=== PATIENT | male | born 1990 | race African-American/Black ===

== ENCOUNTER 2020-06-15 16:46 | Emergency (ER) | payer OTHER ==
[~2020-06-15] VITALS: Ht 162.6 cm; Wt 65.9 kg
[2020-06-15 16:47] VITALS: BP 141/94
[2020-06-15] MEDS ORDERED: ARIP2 PO (16:53)
[2020-06-15] MEDS ORDERED: PERTUSS(ACELL),DIPH,TET VAC/PF 0.5 ML SYRINGE IM ONE (17:30)
[2020-06-15] MEDS ORDERED: AMOX TR/POT CLAV 875 MG/125 MG TABLET PO ONE (17:30)
== END 2020-06-15 18:13 | disposition home or self-care (01) ==
LOC: EMS 16:46
DX: S01.21XA Laceration without foreign body of nose, initial encounter (principal); F32.9 Major depressive disorder, single episode, unspecified; Z91.018 Allergy to other foods; Y04.1XXA Assault by human bite, initial encounter; Y93.89 Activity, other specified; Y92.89 Other specified places as the place of occurrence of the external cause; Y99.8 Other external cause status
CPT/HCPCS: 12011; 90471; 90715; 99283

== ENCOUNTER 2020-06-16 10:55 | Emergency (ER) | payer OTHER ==
[~2020-06-16] VITALS: Ht 165.1 cm; Wt 72.7 kg
[~2020-06-16 10:55] MED LIST: ARIP2 PO
[2020-06-16] MEDS ORDERED: KETOROLAC TROMETHAMINE 60 MG/2 ML VIAL IM ONE (12:45)
[2020-06-16 13:30] VITALS: BP 150/86
== END 2020-06-16 14:00 | disposition home or self-care (01) ==
LOC: EMS 10:59
DX: S62.001A Unspecified fracture of navicular [scaphoid] bone of right wrist, initial encounter for closed fracture (principal); F12.90 Cannabis use, unspecified, uncomplicated; Y04.0XXA Assault by unarmed brawl or fight, initial encounter; Y93.89 Activity, other specified; Y92.89 Other specified places as the place of occurrence of the external cause; Y99.8 Other external cause status
CPT/HCPCS: 29125; 73110; 73130; 96372; 99284; J1885

== ENCOUNTER 2021-10-09 14:32 | Inpatient (IN) | payer MEDICAID, OTHER ==
[~2021-10-09] VITALS: Ht 162.6 cm; Wt 53.5 kg
[~2021-10-09 14:32] MED LIST changes: -ARIP2 PO; +ARIP2TAB27 PO
[2021-10-09 16:40] LABS: BASOPHILS % (AUTO) 0.9 % (0.0-2.0); EOSINOPHILS % (AUTO) 1.9 % (1.0-6.0); HEMATOCRIT 39.4 % (41-53); HEMOGLOBIN 13.5 g/dL (13.5-17.5); LYMPHOCYTES % (AUTO) 47.9 % (22.0-44.0); MEAN CORPUSCULAR HEMOGLOBIN 31.2 pg (26.0-34.0); MEAN CORPUSCULAR HGB CONC 34.2 G/dL (31.0-37.0); MEAN CORPUSCULAR VOLUME 91 fL (80-100); MONOCYTES # (AUTO) 0.4 K/uL (0.1-1.0); MONOCYTES % (AUTO) 9.9 % (2.0-9.0); NEUTROPHILS # (AUTO) 1.7 K/uL (1.8-7.7); NEUTROPHILS % (AUTO) 39.4 % (40.0-70.0); PLATELET COUNT (AUTO) 236 K/uL (150-450); RED BLOOD CELL COUNT(AUTO) 4.33 MIL/uL (4.50-5.90); RED CELL DISTRIBUTION WIDTH 12.6 % (11.5-14.5)
[2021-10-09 16:45] LABS: ANION GAP 4 mmol/L (8-16); CALCIUM, TOTAL 8.8 mg/dL (8.8-10.5); CARBON DIOXIDE 30 mmol/L (22-29); CHLORIDE 104 mmol/L (98-107); CREATININE 1.11 mg/dL (0.60-1.30); GLUCOSE,RANDOM 131 mg/dL (70-110); POTASSIUM 3.7 mmol/L (3.5-5.1); SODIUM SERUM 138 mmol/L (136-145); UREA NITROGEN, BLOOD 9 mg/dL (7-18)
[2021-10-09 16:46] LABS: GLOMERULAR FILTR. RATE CALC > 60 mL/min (>60)
[2021-10-09 16:51] LABS: ALANINE AMINOTRANSFERASE 43 U/L (12-78); ALBUMIN 3.6 g/dL (3.4-5.0); ALKALINE PHOSPHATASE 93 U/L (46-116); ASPARTATE AMINOTRANSFERASE 47 U/L (15-37); TOTAL PROTEIN, SERUM 6.8 g/dL (6.4-8.2)
[2021-10-09] MEDS ORDERED: ZOLPIDEM TARTRATE 10 MG TABLET PO PRN (17:00)
[2021-10-09] MEDS ORDERED: OLANZapine 5 MG RAPDIS TABLET PO PRN (17:00)
[2021-10-09] MEDS ORDERED: LORazepam 2 MG TABLET PO PRN (17:00)
[2021-10-09] MEDS ORDERED: NICOTINE 14 MG/24 HOUR PATCH TD ONE (17:30)
[2021-10-09 17:33] LABS: COVID AG,FIA SOURCE NASAL SWAB
[2021-10-09 17:48] LABS: AMPHET/METH SCREEN,URINE NEGATIVE (NEGATIVE); BARBITURATE SCREEN, URINE NEGATIVE (NEGATIVE); BENZODIAZEPINES SCREEN,URINE NEGATIVE (NEGATIVE); CANNABINOID SCREEN,URINE POSITIVE (NEGATIVE); COCAINE SCREEN,URINE NEGATIVE (NEGATIVE); METHADONE SCREEN, URINE NEGATIVE (NEGATIVE); OPIATE SCREEN,URINE NEGATIVE (NEGATIVE)
[2021-10-09 17:52] LABS: APPEARANCE,URINE CLEAR (CLEAR); BILIRUBIN,URINE NEGATIVE (NEGATIVE); GLUCOSE, URINE (UA) NEGATIVE (NEGATIVE); KETONES,URINE NEGATIVE (NEGATIVE); LEUKOCYTE ESTERASE ,URINE NEGATIVE (NEGATIVE); NITRATE,URINE NEGATIVE (NEGATIVE); OCCULT BLOOD,URINE NEGATIVE (NEGATIVE); PROTEIN,URINE NEGATIVE (NEGATIVE); SPECIFIC GRAVITIY, URINE 1.002 (1.003-1.030); UROBILINOGEN,URINE <=1.0 mg/dL (<=1.0)
[2021-10-09 17:55] LABS: PHENCYCLIDINE SCREEN,URINE NEGATIVE (NEGATIVE)
[2021-10-09] MEDS ORDERED: TUBERCULIN, PURIFIED PROTEIN DERIVATIVE 5 TU/0.1 ML SYRINGE ID ONE (21:00)
[2021-10-09] MEDS ORDERED: GuaiFENesin/D-METHORPHAN [SUGAR-FREE] 200-20MG/10 ML SYRUP UDCUP PO PRN (21:00)
[2021-10-09] MEDS ORDERED: PROMETHAZINE HCL 25 MG TABLET PO PRN (21:00)
[2021-10-09] MEDS ORDERED: HydrOXYzine PAMOATE 50 MG CAPSULE PO PRN (21:00)
[2021-10-09] MEDS ORDERED: MAG HYDROX/AL HYDROX/SIMETH ES 30 ML SUSPENSION UDCUP PO PRN (21:00)
[2021-10-09] MEDS ORDERED: ACETAMINOPHEN 325 MG TABLET PO PRN (21:00)
[2021-10-09] MEDS ORDERED: LOPERAMIDE HCL 2 MG CAPSULE PO PRN (21:00)
[2021-10-09 22:24] VITALS: BP 139/66
[2021-10-09] MEDS: MELATONIN 5 MG TABLET PO SCH (23:02)
[2021-10-09] MEDS: OLANZapine 5 MG RAPDIS TABLET PO SCH (23:03)
[2021-10-10 07:21] LABS: CHOL/HDL RATIO 2.6 (4.2-7.3); FREE T4 (FREE THYROXINE) 1.12 ng/dL (0.76-1.46); THYROID STIMULATING HORMONE 0.72 uIU/mL (0.36-3.74)
[2021-10-10 08:09] LABS: HEMOGLOBIN A1C 4.8 % (3.8-5.6)
[2021-10-10 08:19] VITALS: BP 114/69
[2021-10-10] MEDS: FOLIC ACID 1 MG TABLET PO SCH (08:52)
[2021-10-10] MEDS: MULTIVITAMINS WITH MINERALS, THERAPEUTIC TABLET PO SCH (08:52)
[2021-10-10] MEDS: THIAMINE 100 MG TABLET PO SCH ×2 (08:52→17:04)
[2021-10-10] MEDS: NALTREXONE HCL 50 MG TABLET PO SCH (08:52)
[2021-10-10] MEDS: OMEGA-3/DHA/EPA/FISH OIL 1,000 MG CAPSULE PO SCH (08:53)
[2021-10-10] MEDS ORDERED: LORazepam 2 MG/ML VIAL IM ONE (14:45)
[2021-10-10] MEDS ORDERED: DiphenhydrAMINE HCL 50 MG/ML VIAL IM ONE (14:45)
[2021-10-10] MEDS ORDERED: HALOPERIDOL LACTATE 5 MG/ML VIAL IM ONE (14:45)
[2021-10-10] MEDS ORDERED: HALOPERIDOL LACTATE 5 MG/ML VIAL ONE (14:47)
[2021-10-10] MEDS ORDERED: LORazepam 2 MG/ML VIAL ONE (14:47)
[2021-10-10] MEDS ORDERED: DiphenhydrAMINE HCL 50 MG/ML VIAL ONE (14:47)
[2021-10-10 20:08] VITALS: BP 115/68
[2021-10-10] MEDS: MELATONIN 5 MG TABLET PO SCH (21:32)
[2021-10-10] MEDS: DIVALPROEX SODIUM 250 MG ER TABLET PO SCH (21:32)
[2021-10-10] MEDS: OLANZapine 5 MG RAPDIS TABLET PO SCH (21:32)
[2021-10-11 08:32] VITALS: BP 142/96
[2021-10-11] MEDS: THIAMINE 100 MG TABLET PO SCH ×2 (09:00→16:57)
[2021-10-11] MEDS: NALTREXONE HCL 50 MG TABLET PO SCH (09:00)
[2021-10-11] MEDS: DIVALPROEX SODIUM 250 MG ER TABLET PO SCH ×2 (09:00→12:24)
[2021-10-11] MEDS: OMEGA-3/DHA/EPA/FISH OIL 1,000 MG CAPSULE PO SCH (09:00)
[2021-10-11] MEDS: MULTIVITAMINS WITH MINERALS, THERAPEUTIC TABLET PO SCH (09:00)
[2021-10-11] MEDS: FOLIC ACID 1 MG TABLET PO SCH (09:00)
[2021-10-11 20:04] VITALS: BP 125/84
[2021-10-11] MEDS: MELATONIN 5 MG TABLET PO SCH (20:11)
[2021-10-11] MEDS ORDERED: OLANZapine 10 MG RAPDIS TABLET PO SCH (21:00)
[2021-10-12 05:08] VITALS: BP 132/82
[2021-10-12] MEDS: THIAMINE 100 MG TABLET PO SCH ×2 (08:06→16:04)
[2021-10-12] MEDS: FOLIC ACID 1 MG TABLET PO SCH (08:06)
[2021-10-12] MEDS: NALTREXONE HCL 50 MG TABLET PO SCH (08:06)
[2021-10-12] MEDS: OMEGA-3/DHA/EPA/FISH OIL 1,000 MG CAPSULE PO SCH (08:06)
[2021-10-12] MEDS: MULTIVITAMINS WITH MINERALS, THERAPEUTIC TABLET PO SCH (08:06)
[2021-10-12 08:14] VITALS: BP 110/63
[2021-10-12] MEDS ORDERED: PALIPERIDONE PALMITATE 234 MG/1.5 ML SYRINGE IM ONE (13:45)
[2021-10-12] MEDS ORDERED: MELA5TAB40 PO (16:08)
[2021-10-12] MEDS ORDERED: NALT50TA PO (16:08)
[2021-10-12] MEDS ORDERED: OMEG-108 PO (16:08)
[2021-10-12] MEDS ORDERED: PALI117D IM (16:08)
[2021-10-12 20:09] VITALS: BP 140/78
[2021-10-12] MEDS: MELATONIN 5 MG TABLET PO SCH (20:10)
[2021-10-13 06:05] VITALS: BP 139/88
[2021-10-13 08:01] VITALS: BP 136/71
[2021-10-13] MEDS: FOLIC ACID 1 MG TABLET PO SCH (08:17)
[2021-10-13] MEDS: NALTREXONE HCL 50 MG TABLET PO SCH (08:17)
[2021-10-13] MEDS: MULTIVITAMINS WITH MINERALS, THERAPEUTIC TABLET PO SCH (08:17)
[2021-10-13] MEDS: OMEGA-3/DHA/EPA/FISH OIL 1,000 MG CAPSULE PO SCH (08:17)
[2021-10-13] MEDS: THIAMINE 100 MG TABLET PO SCH (08:17)
[2021-11-09] MEDS ORDERED: PALIPERIDONE PALMITATE 117 MG/0.75 ML SYRINGE IM SCH (09:00)
== END 2021-10-13 13:15 | disposition home or self-care (01) | DRG 750 ==
LOC: EMS 14:32 → B2S 17:26 → B3A 10-10 16:15
PROVIDERS: ADMIT Psychiatry & Neurology Psychiatry; ATTEND Psychiatry & Neurology Psychiatry
DX: F20.9 Schizophrenia, unspecified (principal); Z20.822 Contact with and (suspected) exposure to COVID-19
CPT/HCPCS: 80053; 80061; 81003; 83036; 84439; 84443; 85025; 86592; 99285; G0480; J1200; J1630; J2060; Q9967

== ENCOUNTER 2022-02-08 12:51 | Inpatient (IN) | payer MEDICAID, OTHER ==
[~2022-02-08] VITALS: Ht 162.6 cm; Wt 64.9 kg
[~2022-02-08 12:51] MED LIST changes: -ARIP2TAB27 PO; +MELA5TAB40 PO; +NALT50TA PO; +OMEG-135 PO; +PALI117D IM
[2022-02-08 14:57] LABS: COVID AG,FIA SOURCE NASOPHARYNGEAL
[2022-02-08 14:59] LABS: BASOPHILS % (AUTO) 0.9 % (0.0-2.0); EOSINOPHILS % (AUTO) 0.4 % (1.0-6.0); HEMATOCRIT 42.1 % (41-53); HEMOGLOBIN 14.2 g/dL (13.5-17.5); LYMPHOCYTES # (AUTO) 2.1 K/uL (1.0-4.8); LYMPHOCYTES % (AUTO) 28.4 % (22.0-44.0); MEAN CORPUSCULAR HEMOGLOBIN 30.8 pg (26.0-34.0); MEAN CORPUSCULAR HGB CONC 33.8 G/dL (31.0-37.0); MEAN CORPUSCULAR VOLUME 91 fL (80-100); MONOCYTES # (AUTO) 0.5 K/uL (0.1-1.0); MONOCYTES % (AUTO) 6.8 % (2.0-9.0); NEUTROPHILS # (AUTO) 4.8 K/uL (1.8-7.7); NEUTROPHILS % (AUTO) 63.5 % (40.0-70.0); PLATELET COUNT (AUTO) 304 K/uL (150-450); RED BLOOD CELL COUNT(AUTO) 4.63 MIL/uL (4.50-5.90); RED CELL DISTRIBUTION WIDTH 12.5 % (11.5-14.5)
[2022-02-08] MEDS ORDERED: LORazepam 2 MG TABLET PO PRN (15:00)
[2022-02-08] MEDS ORDERED: HALOPERIDOL 5 MG TABLET PO PRN (15:00)
[2022-02-08] MEDS ORDERED: ZOLPIDEM TARTRATE 10 MG TABLET PO PRN (15:00)
[2022-02-08 15:11] LABS: ANION GAP 7 mmol/L (8-16); CALCIUM, TOTAL 9.5 mg/dL (8.8-10.5); CARBON DIOXIDE 28 mmol/L (22-29); CHLORIDE 104 mmol/L (98-107); CREATININE 1.09 mg/dL (0.60-1.30); GLOMERULAR FILTR. RATE CALC > 60 mL/min (>60); GLUCOSE,RANDOM 92 mg/dL (70-110); POTASSIUM 4.3 mmol/L (3.5-5.1); SODIUM SERUM 139 mmol/L (136-145); UREA NITROGEN, BLOOD 14 mg/dL (7-18)
[2022-02-08 15:17] LABS: ALANINE AMINOTRANSFERASE 37 U/L (12-78); ALBUMIN 4.1 g/dL (3.4-5.0); ALKALINE PHOSPHATASE 107 U/L (46-116); ASPARTATE AMINOTRANSFERASE 41 U/L (15-37); BILIRUBIN,TOTAL 1.4 mg/dL (0.1-1.0); TOTAL PROTEIN, SERUM 7.5 g/dL (6.4-8.2)
[2022-02-08 19:21] VITALS: BP 104/53
[2022-02-08 23:50] VITALS: BP 127/84
[2022-02-09 08:10] VITALS: BP 129/88
[2022-02-09] MEDS: DIVALPROEX SODIUM 500 MG DR TABLET PO SCH ×2 (12:00→20:18)
[2022-02-09] MEDS: RisperiDONE 2 MG TABLET PO SCH ×2 (12:00→20:18)
[2022-02-09] MEDS: OMEGA-3/DHA/EPA/FISH OIL 1,000 MG CAPSULE PO SCH (12:16)
[2022-02-09 20:22] VITALS: BP 104/67
[2022-02-10 01:43] VITALS: BP 130/79
[2022-02-10 08:09] VITALS: BP 124/72
[2022-02-10] MEDS: OMEGA-3/DHA/EPA/FISH OIL 1,000 MG CAPSULE PO SCH (08:32)
[2022-02-10] MEDS: DIVALPROEX SODIUM 500 MG DR TABLET PO SCH ×2 (08:32→20:49)
[2022-02-10] MEDS: RisperiDONE 2 MG TABLET PO SCH ×2 (08:32→20:49)
[2022-02-10 20:43] VITALS: BP 122/70
[2022-02-11] MEDS: OMEGA-3/DHA/EPA/FISH OIL 1,000 MG CAPSULE PO SCH (08:13)
[2022-02-11 08:14] VITALS: BP 122/76
[2022-02-11] MEDS: DIVALPROEX SODIUM 500 MG DR TABLET PO SCH ×2 (08:16→20:08)
[2022-02-11] MEDS: RisperiDONE 2 MG TABLET PO SCH ×2 (09:00→20:07)
[2022-02-11 22:07] VITALS: BP 129/74
[2022-02-12 08:08] VITALS: BP 129/83
[2022-02-12] MEDS: OMEGA-3/DHA/EPA/FISH OIL 1,000 MG CAPSULE PO SCH (08:11)
[2022-02-12] MEDS: RisperiDONE 2 MG TABLET PO SCH ×2 (08:15→20:28)
[2022-02-12] MEDS: DIVALPROEX SODIUM 500 MG DR TABLET PO SCH ×2 (08:16→20:28)
[2022-02-12] MEDS ORDERED: PALIPERIDONE PALMITATE 234 MG/1.5 ML SYRINGE IM ONE (16:00)
[2022-02-12 20:19] VITALS: BP 134/68
[2022-02-13 07:43] LABS: AMPHET/METH SCREEN,URINE NEGATIVE (NEGATIVE); BARBITURATE SCREEN, URINE NEGATIVE (NEGATIVE); BENZODIAZEPINES SCREEN,URINE NEGATIVE (NEGATIVE); CANNABINOID SCREEN,URINE NEGATIVE (NEGATIVE); COCAINE SCREEN,URINE NEGATIVE (NEGATIVE); METHADONE SCREEN, URINE NEGATIVE (NEGATIVE); OPIATE SCREEN,URINE NEGATIVE (NEGATIVE)
[2022-02-13 07:46] LABS: PHENCYCLIDINE SCREEN,URINE NEGATIVE (NEGATIVE)
[2022-02-13 08:18] VITALS: BP 155/83
[2022-02-13] MEDS: OMEGA-3/DHA/EPA/FISH OIL 1,000 MG CAPSULE PO SCH (08:39)
[2022-02-13] MEDS: DIVALPROEX SODIUM 500 MG DR TABLET PO SCH ×2 (08:40→21:00)
[2022-02-13] MEDS: RisperiDONE 2 MG TABLET PO SCH (08:40)
[2022-02-13 20:12] VITALS: BP 126/80
[2022-02-14] MEDS: OMEGA-3/DHA/EPA/FISH OIL 1,000 MG CAPSULE PO SCH (08:11)
[2022-02-14] MEDS: DIVALPROEX SODIUM 500 MG DR TABLET PO SCH ×2 (08:21→20:08)
[2022-02-14] MEDS: RisperiDONE 2 MG TABLET PO SCH ×2 (08:21→20:08)
[2022-02-14 08:23] VITALS: BP 140/75
[2022-02-14 08:51] LABS: GLUCOMETER DEV NAME(LOC) POC.BV
[2022-02-14 20:13] VITALS: BP 130/74
[2022-02-15 08:25] VITALS: BP 140/85
[2022-02-15] MEDS: OMEGA-3/DHA/EPA/FISH OIL 1,000 MG CAPSULE PO SCH (08:42)
[2022-02-15] MEDS: DIVALPROEX SODIUM 500 MG DR TABLET PO SCH ×2 (08:42→20:25)
[2022-02-15] MEDS: RisperiDONE 2 MG TABLET PO SCH ×2 (08:42→20:25)
[2022-02-15 20:30] VITALS: BP 136/83
[2022-02-16] MEDS: RisperiDONE 2 MG TABLET PO SCH ×3 (09:00→21:00)
[2022-02-16] MEDS ORDERED: PALIPERIDONE PALMITATE 156 MG/ML SYRINGE IM ONE (09:00)
[2022-02-16] MEDS: DIVALPROEX SODIUM 500 MG DR TABLET PO SCH ×3 (09:00→21:00)
[2022-02-16] MEDS: OMEGA-3/DHA/EPA/FISH OIL 1,000 MG CAPSULE PO SCH (09:03)
[2022-02-16 09:04] VITALS: BP 139/86
[2022-02-16 20:33] VITALS: BP 129/72
[2022-02-17] MEDS: OMEGA-3/DHA/EPA/FISH OIL 1,000 MG CAPSULE PO SCH (08:36)
[2022-02-17] MEDS: DIVALPROEX SODIUM 500 MG DR TABLET PO SCH ×2 (08:37→20:52)
[2022-02-17] MEDS: RisperiDONE 2 MG TABLET PO SCH ×2 (08:37→20:52)
[2022-02-17 08:53] VITALS: BP 135/81
[2022-02-17 08:59] VITALS: BP 135/81
[2022-02-17 20:16] VITALS: BP 119/68
[2022-02-18] MEDS: OMEGA-3/DHA/EPA/FISH OIL 1,000 MG CAPSULE PO SCH (08:17)
[2022-02-18 08:30] VITALS: BP 130/84
[2022-02-18] MEDS: DIVALPROEX SODIUM 500 MG DR TABLET PO SCH ×2 (09:00→21:00)
[2022-02-18] MEDS: RisperiDONE 2 MG TABLET PO SCH ×2 (09:00→21:00)
[2022-02-18 20:28] VITALS: BP 129/71
[2022-02-19 04:49] VITALS: BP 131/83
[2022-02-19] MEDS: DIVALPROEX SODIUM 500 MG DR TABLET PO SCH ×2 (08:12→21:00)
[2022-02-19] MEDS: RisperiDONE 2 MG TABLET PO SCH ×2 (08:12→21:00)
[2022-02-19] MEDS: OMEGA-3/DHA/EPA/FISH OIL 1,000 MG CAPSULE PO SCH (08:12)
[2022-02-19 08:27] VITALS: BP 124/74
[2022-02-19 20:18] VITALS: BP 122/68
[2022-02-20] MEDS: OMEGA-3/DHA/EPA/FISH OIL 1,000 MG CAPSULE PO SCH (08:25)
[2022-02-20 08:34] VITALS: BP 130/74
[2022-02-20] MEDS: DIVALPROEX SODIUM 500 MG DR TABLET PO SCH ×2 (09:00→20:48)
[2022-02-20] MEDS: RisperiDONE 2 MG TABLET PO SCH ×2 (09:00→20:48)
[2022-02-20 20:28] VITALS: BP 116/68
[2022-02-21 08:17] VITALS: BP 105/61
[2022-02-21] MEDS: OMEGA-3/DHA/EPA/FISH OIL 1,000 MG CAPSULE PO SCH (08:17)
[2022-02-21] MEDS: RisperiDONE 2 MG TABLET PO SCH ×2 (08:50→20:52)
[2022-02-21] MEDS: DIVALPROEX SODIUM 500 MG DR TABLET PO SCH ×2 (08:50→20:52)
[2022-02-21 20:42] VITALS: BP 114/65
[2022-02-22] MEDS: DIVALPROEX SODIUM 500 MG DR TABLET PO SCH ×2 (08:56→20:33)
[2022-02-22] MEDS: OMEGA-3/DHA/EPA/FISH OIL 1,000 MG CAPSULE PO SCH (08:57)
[2022-02-22 10:11] LABS: GLUCOMETER DEV NAME(LOC) POC.BV
[2022-02-22 20:00] VITALS: BP 110/65
[2022-02-23] MEDS: DIVALPROEX SODIUM 500 MG DR TABLET PO SCH ×2 (08:18→21:05)
[2022-02-23] MEDS: OMEGA-3/DHA/EPA/FISH OIL 1,000 MG CAPSULE PO SCH (08:18)
[2022-02-23 08:30] VITALS: BP 116/65
[2022-02-23 20:00] VITALS: BP 120/72
[2022-02-24 08:20] VITALS: BP 111/70
[2022-02-24] MEDS: DIVALPROEX SODIUM 500 MG DR TABLET PO SCH ×2 (08:46→20:24)
[2022-02-24] MEDS: OMEGA-3/DHA/EPA/FISH OIL 1,000 MG CAPSULE PO SCH (08:46)
[2022-02-25 04:40] VITALS: BP 132/66
[2022-02-25 08:37] VITALS: BP 118/64
[2022-02-25] MEDS: DIVALPROEX SODIUM 500 MG DR TABLET PO SCH ×2 (08:44→20:56)
[2022-02-25] MEDS: OMEGA-3/DHA/EPA/FISH OIL 1,000 MG CAPSULE PO SCH (08:44)
[2022-02-25 21:07] VITALS: BP 124/72
[2022-02-26 08:45] VITALS: BP 116/72
[2022-02-26] MEDS: OMEGA-3/DHA/EPA/FISH OIL 1,000 MG CAPSULE PO SCH (09:15)
[2022-02-26] MEDS: DIVALPROEX SODIUM 500 MG DR TABLET PO SCH ×2 (09:15→20:37)
[2022-02-26 20:25] VITALS: BP 132/70
[2022-02-27] MEDS: DIVALPROEX SODIUM 500 MG DR TABLET PO SCH ×2 (08:30→20:55)
[2022-02-27] MEDS: OMEGA-3/DHA/EPA/FISH OIL 1,000 MG CAPSULE PO SCH (08:30)
[2022-02-27 08:55] VITALS: BP 129/72
[2022-02-28 02:22] VITALS: BP 126/76
[2022-02-28 08:36] VITALS: BP 123/77
[2022-02-28] MEDS: DIVALPROEX SODIUM 500 MG DR TABLET PO SCH ×2 (09:04→20:28)
[2022-02-28] MEDS: OMEGA-3/DHA/EPA/FISH OIL 1,000 MG CAPSULE PO SCH (09:04)
[2022-02-28 20:16] VITALS: BP 122/71
[2022-03-01] MEDS: OMEGA-3/DHA/EPA/FISH OIL 1,000 MG CAPSULE PO SCH (08:42)
[2022-03-01] MEDS: DIVALPROEX SODIUM 500 MG DR TABLET PO SCH ×2 (08:42→20:11)
[2022-03-01 09:09] VITALS: BP 124/73
[2022-03-01] MEDS ORDERED: PALIPERIDONE PALMITATE 156 MG/ML SYRINGE IM SCH (10:30)
[2022-03-01 20:22] VITALS: BP 123/77
[2022-03-02] MEDS: OMEGA-3/DHA/EPA/FISH OIL 1,000 MG CAPSULE PO SCH (08:36)
[2022-03-02] MEDS: DIVALPROEX SODIUM 500 MG DR TABLET PO SCH ×2 (08:36→20:33)
[2022-03-02 09:31] VITALS: BP 134/86
[2022-03-02 14:26] LABS: GLUCOMETER DEV NAME(LOC) POC.BV
[2022-03-02 20:56] VITALS: BP 115/75
[2022-03-03 08:40] VITALS: BP 130/87
[2022-03-03] MEDS: DIVALPROEX SODIUM 500 MG DR TABLET PO SCH ×2 (08:59→20:33)
[2022-03-03] MEDS: OMEGA-3/DHA/EPA/FISH OIL 1,000 MG CAPSULE PO SCH (08:59)
[2022-03-03 20:57] VITALS: BP 125/74
[2022-03-04 08:12] VITALS: BP 128/76
[2022-03-04] MEDS: DIVALPROEX SODIUM 500 MG DR TABLET PO SCH ×2 (08:30→20:06)
[2022-03-04] MEDS: OMEGA-3/DHA/EPA/FISH OIL 1,000 MG CAPSULE PO SCH (08:32)
[2022-03-04 22:00] VITALS: BP 109/68
[2022-03-05] MEDS: DIVALPROEX SODIUM 500 MG DR TABLET PO SCH ×2 (08:33→20:13)
[2022-03-05] MEDS: OMEGA-3/DHA/EPA/FISH OIL 1,000 MG CAPSULE PO SCH (08:33)
[2022-03-05 09:17] VITALS: BP 122/74
[2022-03-05 20:31] VITALS: BP 139/85
[2022-03-06 08:22] VITALS: BP 115/72
[2022-03-06] MEDS: OMEGA-3/DHA/EPA/FISH OIL 1,000 MG CAPSULE PO SCH (08:30)
[2022-03-06] MEDS: DIVALPROEX SODIUM 500 MG DR TABLET PO SCH ×2 (08:30→20:10)
[2022-03-06 20:14] VITALS: BP 130/70
[2022-03-07] MEDS: DIVALPROEX SODIUM 500 MG DR TABLET PO SCH ×2 (08:45→20:34)
[2022-03-07] MEDS: OMEGA-3/DHA/EPA/FISH OIL 1,000 MG CAPSULE PO SCH (08:45)
[2022-03-07 09:05] VITALS: BP 119/76
[2022-03-07 20:42] VITALS: BP 127/71
[2022-03-08] MEDS: DIVALPROEX SODIUM 500 MG DR TABLET PO SCH ×2 (08:25→20:25)
[2022-03-08] MEDS: OMEGA-3/DHA/EPA/FISH OIL 1,000 MG CAPSULE PO SCH (08:25)
[2022-03-08 08:30] VITALS: BP 125/81
[2022-03-08 21:23] VITALS: BP 119/92
[2022-03-08 21:41] LABS: GLUCOMETER DEV NAME(LOC) POC.BV
[2022-03-09] MEDS: OMEGA-3/DHA/EPA/FISH OIL 1,000 MG CAPSULE PO SCH (08:33)
[2022-03-09] MEDS: DIVALPROEX SODIUM 500 MG DR TABLET PO SCH ×2 (08:33→20:37)
[2022-03-09 10:30] VITALS: BP 123/70
[2022-03-09 21:18] VITALS: BP 118/64
[2022-03-10 08:02] VITALS: BP 139/90
[2022-03-10] MEDS: OMEGA-3/DHA/EPA/FISH OIL 1,000 MG CAPSULE PO SCH (08:03)
[2022-03-10] MEDS: DIVALPROEX SODIUM 500 MG DR TABLET PO SCH ×2 (08:03→20:02)
[2022-03-10] MEDS ORDERED: CloNIDine HCL 0.1 MG TABLET PO PRN (14:30)
[2022-03-10] MEDS ORDERED: DOCUSATE SODIUM 100 MG CAPSULE PO PRN (14:30)
[2022-03-10] MEDS ORDERED: LOPERAMIDE HCL 2 MG CAPSULE PO PRN (14:30)
[2022-03-10] MEDS ORDERED: GuaiFENesin/D-METHORPHAN [SUGAR-FREE] 200-20MG/10 ML SYRUP UDCUP PO PRN (14:30)
[2022-03-10] MEDS ORDERED: ACETAMINOPHEN 325 MG TABLET PO PRN (14:30)
[2022-03-10] MEDS ORDERED: ALBUTEROL SULFATE HFA 90 MCG/PUFF 8 GM INHALER IH PRN (14:30)
[2022-03-10] MEDS ORDERED: PETROLATUM,WHITE 28 GM JELLY TP PRN (14:30)
[2022-03-10] MEDS ORDERED: MAGNESIUM HYDROXIDE SUSPENSION 30 ML UDCUP PO PRN (14:30)
[2022-03-10] MEDS ORDERED: NICOTINE 14 MG/24 HOUR PATCH TD PRN (14:30)
[2022-03-10] MEDS ORDERED: IBUPROFEN 400 MG TABLET PO PRN (14:30)
[2022-03-10] MEDS ORDERED: ONDANSETRON HCL 4 MG TABLET PO PRN (14:30)
[2022-03-10] MEDS ORDERED: MAG HYDROX/AL HYDROX/SIMETH ES 30 ML SUSPENSION UDCUP PO PRN (14:30)
[2022-03-10 20:27] VITALS: BP 143/93
[2022-03-11] MEDS: DIVALPROEX SODIUM 500 MG DR TABLET PO SCH ×2 (08:01→20:26)
[2022-03-11] MEDS: OMEGA-3/DHA/EPA/FISH OIL 1,000 MG CAPSULE PO SCH (08:01)
[2022-03-11 08:04] VITALS: BP 126/66
[2022-03-11] MEDS ORDERED: DIVA-112 PO (10:23)
[2022-03-11 20:49] VITALS: BP 120/81
[2022-03-12] MEDS: OMEGA-3/DHA/EPA/FISH OIL 1,000 MG CAPSULE PO SCH (08:06)
[2022-03-12] MEDS: DIVALPROEX SODIUM 500 MG DR TABLET PO SCH ×2 (08:06→20:17)
[2022-03-12 08:34] VITALS: BP 127/84
[2022-03-12 20:07] VITALS: BP 136/82
[2022-03-13] MEDS: OMEGA-3/DHA/EPA/FISH OIL 1,000 MG CAPSULE PO SCH (09:38)
[2022-03-13] MEDS: DIVALPROEX SODIUM 500 MG DR TABLET PO SCH ×2 (09:38→20:22)
[2022-03-13 10:34] VITALS: BP 126/83
[2022-03-13 20:06] VITALS: BP 124/80
[2022-03-14] MEDS: OMEGA-3/DHA/EPA/FISH OIL 1,000 MG CAPSULE PO SCH (08:01)
[2022-03-14] MEDS: DIVALPROEX SODIUM 500 MG DR TABLET PO SCH ×2 (08:02→20:11)
[2022-03-14 09:50] VITALS: BP 106/65
[2022-03-14 20:15] VITALS: BP 124/82
[2022-03-15] MEDS: OMEGA-3/DHA/EPA/FISH OIL 1,000 MG CAPSULE PO SCH (09:06)
[2022-03-15] MEDS: DIVALPROEX SODIUM 500 MG DR TABLET PO SCH ×2 (09:06→20:04)
[2022-03-15 12:50] VITALS: BP 120/80
[2022-03-15 20:12] VITALS: BP 127/86
[2022-03-16] MEDS ORDERED: PALIPERIDONE PALMITATE 234 MG/1.5 ML SYRINGE IM SCH (09:00)
[2022-03-16] MEDS: OMEGA-3/DHA/EPA/FISH OIL 1,000 MG CAPSULE PO SCH (09:06)
[2022-03-16] MEDS: DIVALPROEX SODIUM 500 MG DR TABLET PO SCH ×2 (09:06→21:00)
[2022-03-16 09:51] VITALS: BP 141/78
[2022-03-16 11:56] LABS: GLUCOMETER DEV NAME(LOC) POC.BV
[2022-03-17 08:10] VITALS: BP 121/74
[2022-03-17] MEDS: OMEGA-3/DHA/EPA/FISH OIL 1,000 MG CAPSULE PO SCH (08:38)
[2022-03-17] MEDS: DIVALPROEX SODIUM 500 MG DR TABLET PO SCH ×2 (08:38→20:22)
[2022-03-17 21:07] VITALS: BP 127/72
[2022-03-18] MEDS: OMEGA-3/DHA/EPA/FISH OIL 1,000 MG CAPSULE PO SCH (08:33)
[2022-03-18] MEDS: DIVALPROEX SODIUM 500 MG DR TABLET PO SCH ×2 (08:33→20:26)
[2022-03-18 09:04] VITALS: BP 128/76
[2022-03-18 20:38] VITALS: BP 125/66
[2022-03-19 08:17] VITALS: BP 111/67
[2022-03-19] MEDS: OMEGA-3/DHA/EPA/FISH OIL 1,000 MG CAPSULE PO SCH (08:34)
[2022-03-19] MEDS: DIVALPROEX SODIUM 500 MG DR TABLET PO SCH ×2 (08:34→20:31)
[2022-03-19 20:04] VITALS: BP_SYST 128
[2022-03-20 08:03] VITALS: BP 112/77
[2022-03-20] MEDS: OMEGA-3/DHA/EPA/FISH OIL 1,000 MG CAPSULE PO SCH (08:04)
[2022-03-20] MEDS: DIVALPROEX SODIUM 500 MG DR TABLET PO SCH ×2 (08:04→20:19)
[2022-03-20 20:47] VITALS: BP 130/73
[2022-03-20 21:46] VITALS: BP 124/70
[2022-03-21] MEDS: DIVALPROEX SODIUM 500 MG DR TABLET PO SCH ×2 (08:05→20:20)
[2022-03-21] MEDS: OMEGA-3/DHA/EPA/FISH OIL 1,000 MG CAPSULE PO SCH (08:05)
[2022-03-21 08:06] VITALS: BP 123/73
[2022-03-21 20:00] VITALS: BP 136/82
[2022-03-22] MEDS: DIVALPROEX SODIUM 500 MG DR TABLET PO SCH ×2 (08:05→20:37)
[2022-03-22] MEDS: OMEGA-3/DHA/EPA/FISH OIL 1,000 MG CAPSULE PO SCH (08:05)
[2022-03-22 08:30] VITALS: BP 126/83
[2022-03-22 12:36] LABS: GLUCOMETER DEV NAME(LOC) POC.BV
[2022-03-22 20:06] VITALS: BP 112/70
[2022-03-23] MEDS: OMEGA-3/DHA/EPA/FISH OIL 1,000 MG CAPSULE PO SCH (08:12)
[2022-03-23] MEDS: DIVALPROEX SODIUM 500 MG DR TABLET PO SCH ×2 (08:12→20:23)
[2022-03-23 08:34] VITALS: BP 137/87
[2022-03-23 21:58] VITALS: BP 136/73
[2022-03-24] MEDS: DIVALPROEX SODIUM 500 MG DR TABLET PO SCH ×2 (08:02→20:19)
[2022-03-24] MEDS: OMEGA-3/DHA/EPA/FISH OIL 1,000 MG CAPSULE PO SCH (08:02)
[2022-03-24 08:03] VITALS: BP 121/84
[2022-03-24 20:16] VITALS: BP 136/73
[2022-03-25] MEDS: DIVALPROEX SODIUM 500 MG DR TABLET PO SCH ×2 (08:07→20:07)
[2022-03-25] MEDS: OMEGA-3/DHA/EPA/FISH OIL 1,000 MG CAPSULE PO SCH (08:07)
[2022-03-25 09:07] VITALS: BP 128/74
[2022-03-25 20:51] VITALS: BP 116/75
[2022-03-26 08:10] VITALS: BP 130/78
[2022-03-26] MEDS: OMEGA-3/DHA/EPA/FISH OIL 1,000 MG CAPSULE PO SCH (08:28)
[2022-03-26] MEDS: DIVALPROEX SODIUM 500 MG DR TABLET PO SCH (08:28)
[2022-03-26] MEDS ORDERED: PALI234D IM (10:11)
[2022-03-26] MEDS ORDERED: DIVA-112 PO (10:11)
[2022-03-26] MEDS ORDERED: OMEG-135 PO (10:11)
== END 2022-03-26 12:29 | disposition home or self-care (01) | DRG 750 ==
LOC: EMS 13:05 → B3A 15:36 → B2X 03-15 22:25 → B3A 03-16 13:04
PROVIDERS: ADMIT Psychiatry & Neurology Psychiatry; ATTEND Psychiatry & Neurology Psychiatry
DX: F20.0 Paranoid schizophrenia (principal); U07.1 COVID-19; F17.210 Nicotine dependence, cigarettes, uncomplicated; G47.00 Insomnia, unspecified; I10 Essential (primary) hypertension; Z59.02 Unsheltered homelessness; Z79.899 Other long term (current) drug therapy; Z91.018 Allergy to other foods
CPT/HCPCS: 80053; 80164; 85025; 87081; 99285; G0480